=== PATIENT | male | born 2000 | race Caucasian/White ===

== ENCOUNTER 2020-05-14 03:45 | Emergency (ER) | payer SELFPAY ==
[2020-05-14] MEDS ORDERED: Ondansetron PF 4 MG/2 ML Vial ONE (04:06)
[2020-05-14] MEDS ORDERED: Lidocaine 1% (PF) 30 ML VIAL ONE (04:46)
== END 2020-05-14 06:08 | disposition home or self-care (01) ==
LOC: ERS 03:45
DX: S01.112A Laceration without foreign body of left eyelid and periocular area, initial encounter (principal); F10.129 Alcohol abuse with intoxication, unspecified; W17.89XA Other fall from one level to another, initial encounter
CPT/HCPCS: 12013; 36415; 70450; 72125; 80307; 96374; J2001; J2405

== ENCOUNTER 2020-05-19 14:35 | Emergency (ER) | payer SELFPAY | END 2020-05-19 15:10 | disposition home or self-care (01) | LOC: ERS 14:35 | DX: S01.81XD Laceration without foreign body of other part of head, subsequent encounter (principal); X58.XXXD Exposure to other specified factors, subsequent encounter ==

== ENCOUNTER 2020-12-31 03:17 | Emergency (ER) | payer OTHER, SELFPAY ==
[2020-12-31] MEDS ORDERED: Ondansetron PF 4 MG/2 ML Vial ONE ×2 (03:31→03:37)
== END 2020-12-31 07:00 | disposition home or self-care (01) ==
LOC: ERS 03:17
DX: F10.129 Alcohol abuse with intoxication, unspecified (principal); R11.2 Nausea with vomiting, unspecified
CPT/HCPCS: 36416; 96374; J2405